=== PATIENT | male | born 1980 | race African-American/Black ===

== ENCOUNTER 2024-01-27 22:25 | Inpatient (IN) | payer OTHER ==
[~2024-01-27] VITALS: Ht 180.3 cm; Wt 99.8 kg
[2024-01-27] MEDS ORDERED: MORPHINE SULFATE 4 MG/ML INJ (FOR IV/IM USE) IV STA (22:43)
[2024-01-27] MEDS ORDERED: ONDANSETRON HCL 4MG/2ML INJ IV STA (22:43)
[2024-01-27 23:32] LABS: CHLORIDE 107 mEq/L (98-107); POTASSIUM 4.3 mEq/L (3.5-5.1); SODIUM 142 mEq/L (136-145)
[2024-01-27 23:33] LABS: CALCIUM 9.1 mg/dL (8.7-10.4); CARBON DIOXIDE 28 mEq/L (21-32)
[2024-01-27 23:38] LABS: GLUCOSE 143 mg/dL (70-105); UREA NITROGEN BLOOD 10 mg/dL (9-23)
[2024-01-27 23:40] LABS: ALANINE AMINOTRANSFERASE 36 IU/L (10-49); ALBUMIN 4.2 g/dL (3.2-4.8); ASPARTATE AMINOTRANSFERASE 58 IU/L (<34); BILIRUBIN DIRECT 0.2 mg/dL (<=3.0); BILIRUBIN TOTAL 0.9 mg/dL (0.1-1.0); PROTEIN TOTAL 6.7 g/dL (6.0-8.3)
[2024-01-27 23:57] LABS: BASOPHILS % 0.4 % (0.0-2.0); EOSINOPHILS % 1.1 % (0.0-5.0); HEMOGLOBIN. 13.3 g/dL (14.0-18.0); LYMPHOCYTES % 23.7 % (20.0-50.0); MEAN CORPUSCULAR HEMOGLOBIN 27.4 pg (28.0-32.0); MEAN CORPUSCULAR HGB CONC 32.5 g/dL (31.0-37.0); MEAN CORPUSCULAR VOLUME 84.4 fL (80.0-94.0); MEAN PLATELET VOLUME 8.5 fl (7.4-10.4); MONOCYTES % 7.7 % (2.0-8.0); NEUTROPHILS % 67.1 % (40.0-76.0); PLATELET 249 x1000/uL (130-400); RED BLOOD CELL COUNT 4.85 mill/uL (4.7-6.1); WHITE BLOOD COUNT 6.8 x1000/uL (4.5-11.0)
[2024-01-28] MEDS: ONDANSETRON HCL 4MG/2ML INJ IV NR (00:21)
[2024-01-28] MEDS: MORPHINE SULFATE 4 MG/ML INJ (FOR IV/IM USE) IV NR (00:21)
[2024-01-28] MEDS: SODIUM CHLORIDE 0.9% 1,000 ML IV ONE (00:29)
[2024-01-28 02:42] LABS: CLARITY URINE CLEAR (CLEAR); COLOR URINE YELLOW (YELLOW); GLUCOSE URINE NEGATIVE (NEGATIVE); KETONES URINE NEGATIVE (NEGATIVE); LEUKOCYTE ESTERASE URINE NEGATIVE (NEGATIVE); NITRITE URINE NEGATIVE (NEGATIVE); OCCULT BLOOD URINE NEGATIVE (NEGATIVE); PROTEIN URINE NEGATIVE (NEGATIVE); SPECIFIC GRAVITY URINE 1.036 (1.005-1.030)
[2024-01-28] MEDS: IOHEXOL-300 100 ML BOTTLE ONE (04:09)
[2024-01-28] MEDS ORDERED: MAGNESIUM/ALUMINUM HYDROXIDE/SIMETHICONE 30ML UDC PO PRN (11:45)
[2024-01-28] MEDS ORDERED: CLONIDINE 0.1MG TABLET PO PRN (11:45)
[2024-01-28] MEDS ORDERED: ONDANSETRON HCL 4MG/2ML INJ IV PRN (11:45)
[2024-01-28] MEDS ORDERED: IPRATROPIUM/ALBUTEROL 0.5-3(2.5)MG/3ML NEB HHN PRN (11:45)
[2024-01-28] MEDS ORDERED: GUAIFENESIN 200MG/10ML SUGAR FREE UDC PO PRN (11:45)
[2024-01-28] MEDS ORDERED: DOCUSATE SODIUM 100MG CAPSULE PO PRN (11:45)
[2024-01-28] MEDS ORDERED: ACETAMINOPHEN 325MG TABLET PO PRN (11:45)
[2024-01-28 12:00] VITALS: BP 125/80; PULSE 48; RESP 20; TEMP 36.14; TEMP 36.16956; O2SAT 100
[2024-01-28] MEDS: SUCRALFATE 1G TABLET PO SCH (14:20)
[2024-01-28] MEDS: ACETAMINOPHEN 325MG TABLET PO PRN (14:20)
[2024-01-28] MEDS: DEXT 5%/0.9% NACL 1,000 ML IV SCH (15:48)
[2024-01-28 16:00] VITALS: BP 120/82; PULSE 50; RESP 20; TEMP 36.22512; O2SAT 100
[2024-01-28 17:55] LABS: IRON 107 ug/dL (65-175)
[2024-01-28 17:58] LABS: CREATINE KINASE 540 IU/L (46-171); TOTAL IRON BINDING CAPACITY 250 ug/dl (250-425); TROPONIN I HIGH SENSITIVITY 6 ng/L (3.0-53)
[2024-01-28 18:01] LABS: VITAMIN B12 SERUM 411 pg/mL (211-911)
[2024-01-28 18:02] LABS: FERRITIN 47 ng/mL (22-322)
[2024-01-28 18:07] LABS: FOLIC ACID (FOLATE) SERUM 14.15 ng/mL (>5.38)
[2024-01-28 20:00] VITALS: BP 128/85; PULSE 60; RESP 19; TEMP 36.72516; O2SAT 100
[2024-01-28 22:03] LABS: HEPATITIS B SURFACE ANTIGEN NEGATIVE (Negative)
[2024-01-28 22:24] LABS: HEPATITIS C AB NON REACTIVE (Neg) (Negative)
[2024-01-29] VITALS: BP 131/88; PULSE 68; RESP 19; TEMP 37.11408; O2SAT 98
[2024-01-29 00:56] LABS: CREATINE KINASE 555 IU/L (46-171)
[2024-01-29 00:59] LABS: TROPONIN I HIGH SENSITIVITY 5 ng/L (3.0-53)
[2024-01-29 04:00] VITALS: BP 130/84; PULSE 61; RESP 19; TEMP 37.00296; O2SAT 99
[2024-01-29 08:06] LABS: CARBON DIOXIDE 28 mEq/L (21-32); CHLORIDE 108 mEq/L (98-107); POTASSIUM 4.6 mEq/L (3.5-5.1); SODIUM 139 mEq/L (136-145)
[2024-01-29 08:08] LABS: CALCIUM 8.7 mg/dL (8.7-10.4)
[2024-01-29 08:12] LABS: ALANINE AMINOTRANSFERASE 202 IU/L (10-49); ALBUMIN 3.7 g/dL (3.2-4.8); ASPARTATE AMINOTRANSFERASE 429 IU/L (<34); BASOPHILS % 0.6 % (0.0-2.0); BILIRUBIN DIRECT 0.9 mg/dL (<=3.0); CREATININE 0.9 mg/dL (0.6-1.3); EOSINOPHILS % 1.7 % (0.0-5.0); GLUCOSE 154 mg/dL (70-105); HEMATOCRIT. 39.9 % (42.0-52.0); HEMOGLOBIN. 12.8 g/dL (14.0-18.0); LYMPHOCYTES % 26.7 % (20.0-50.0); MEAN CORPUSCULAR HEMOGLOBIN 27.5 pg (28.0-32.0); MEAN CORPUSCULAR HGB CONC 32.2 g/dL (31.0-37.0); MEAN CORPUSCULAR VOLUME 85.6 fL (80.0-94.0); MEAN PLATELET VOLUME 8.7 fl (7.4-10.4); MONOCYTES % 8.1 % (2.0-8.0); NEUTROPHILS % 62.9 % (40.0-76.0); PLATELET 239 x1000/uL (130-400); PROTEIN TOTAL 6.2 g/dL (6.0-8.3); RED BLOOD CELL COUNT 4.66 mill/uL (4.7-6.1); RED CELL DISTRIBUTION WIDTH 13.8 % (11.6-14.6); WHITE BLOOD COUNT 3.5 x1000/uL (4.5-11.0)
[2024-01-29 08:13] LABS: LDL CHOLESTEROL 136 mg/dL (5-100); TRIGLYCERIDE 108 mg/dL (0-150); UREA NITROGEN BLOOD 7 mg/dL (9-23)
[2024-01-29 08:14] LABS: CHOLESTEROL 175 mg/dL (<200)
[2024-01-29 08:15] LABS: HDL CHOLESTEROL 32 mg/dL (>55); PHOSPHORUS 2.2 mg/dL (2.5-4.9); T4 FREE 1.34 ng/dL (0.89-1.76); THYROID STIMULATING HORMONE 2.04 uIU/mL (0.55-4.78)
[2024-01-29] MEDS: PANTOPRAZOLE SODIUM 40 MG/VIAL IV SCH (08:53)
[2024-01-29 09:44] LABS: *AMPHETAMINES SCREEN URINE NEGATIVE (NEGATIVE); *BARBITURATES SCREEN URINE NEGATIVE (NEGATIVE); *BENZODIAZEPINES SCREEN URINE NEGATIVE (NEGATIVE); *COCAINE SCREEN URINE NEGATIVE (NEGATIVE); METHADONE URINE SCREEN NEGATIVE (NEGATIVE); OPIATES URINE SCREEN PRESUMPTIVE POSITIVE (NEGATIVE)
[2024-01-29 09:45] LABS: CANNABINOID URINE SCREEN NEGATIVE (NEGATIVE); ECSTASY MDMA SCREEN URINE NEGATIVE (NEGATIVE); PHENCYCLIDINE URINE SCREEN NEGATIVE (NEGATIVE)
[2024-01-29 12:26] VITALS: BP 129/85; PULSE 64; TEMP 97.6; O2SAT 99
== END 2024-01-29 12:55 | disposition home or self-care (01) | DRG 392 ==
LOC: ER 22:25 → 6EST 01-28 03:15
PROVIDERS: ADMIT Internal Medicine; ATTEND Internal Medicine
DX: A05.9 Bacterial foodborne intoxication, unspecified (principal); D18.03 Hemangioma of intra-abdominal structures; D64.9 Anemia, unspecified; K57.30 Diverticulosis of large intestine without perforation or abscess without bleeding; E66.9 Obesity, unspecified; Z90.49 Acquired absence of other specified parts of digestive tract; Z68.30 Body mass index [BMI] 30.0-30.9, adult
CPT/HCPCS: 36415; 71045; 74177; 80048; 80061; 80076; 80305; 81003; 82550; 82607; 82728; 82746; 83036; 83540; 83550; 83605; 83735; 84100; 84145; 84439; 84443; 84484; 85025; 86705; 87340; 99285; J2270; J2405; J2470; J7030; J7042; Q9967